=== PATIENT | male | born 1955 ===

== ENCOUNTER 2018-01-21 11:39 | Outpatient (CLI) | payer OTHER | END 2018-01-21 11:50 | disposition home or self-care (01) | LOC: LAB 11:39 | DX: R97.20 Elevated prostate specific antigen [PSA] (principal) ==

== ENCOUNTER 2018-01-29 15:03 | Outpatient (CLI) | payer OTHER | END 2018-01-29 15:05 | disposition home or self-care (01) | LOC: SONOGRAMA 15:03 | DX: R97.20 Elevated prostate specific antigen [PSA] (principal) ==